=== PATIENT | male | born 2005 | race Caucasian/White ===

== ENCOUNTER 2023-10-17 15:51 | Emergency (ER) | payer SELFPAY ==
[~2023-10-17] VITALS: Ht 172.7 cm; Wt 90.0 kg
[2023-10-17 15:55] VITALS: O2SAT 100
[2023-10-17] MEDS ORDERED: SODIUM CHLORIDE 0.9% 1,000 ML IV ONE (16:15)
[2023-10-17] MEDS ORDERED: KETOROLAC 15MG/ML VIAL IV ONE (16:15)
[2023-10-17] MEDS ORDERED: NALO4SPR BOTHNSTRLS (16:16)
[2023-10-17 16:20] VITALS: TEMP 98.9
[2023-10-17 16:46] VITALS: BP 136/62; PULSE 106; RESP 20
[2023-10-17 16:57] LABS: BASOPHILS % 0.4 % (0.0-2.0); EOSINOPHILS % 0.7 % (0.0-5.0); HEMATOCRIT. 40.8 % (42.0-52.0); HEMOGLOBIN. 13.7 g/dL (14.0-18.0); MEAN CORPUSCULAR HEMOGLOBIN 28.6 pg (28.0-32.0); MEAN CORPUSCULAR HGB CONC 33.5 g/dL (31.0-37.0); MEAN CORPUSCULAR VOLUME 85.3 fL (80.0-94.0); MEAN PLATELET VOLUME 8.1 fl (7.4-10.4); MONOCYTES % 8.5 % (2.0-8.0); NEUTROPHILS % 73.4 % (40.0-76.0); PLATELET 264 x1000/uL (130-400); RED BLOOD CELL COUNT 4.79 mill/uL (4.7-6.1); RED CELL DISTRIBUTION WIDTH 14.3 % (11.6-14.6); WHITE BLOOD COUNT 14.4 x1000/uL (4.5-11.0)
[2023-10-17 17:28] LABS: ACETAMINOPHEN < 2 ug/mL (10-30); ALANINE AMINOTRANSFERASE 36 IU/L (10-49); ALBUMIN 4.6 g/dL (3.2-4.8); ASPARTATE AMINOTRANSFERASE 41 IU/L (<34); BILIRUBIN TOTAL 0.8 mg/dL (0.1-1.0); CALCIUM 9.7 mg/dL (8.7-10.4); CARBON DIOXIDE 28 mEq/L (21-32); CHLORIDE 102 mEq/L (98-107); GLUCOSE 83 mg/dL (70-105); POTASSIUM 3.9 mEq/L (3.5-5.1); PROTEIN TOTAL 7.5 g/dL (6.0-8.3); SODIUM 138 mEq/L (136-145); UREA NITROGEN BLOOD 11 mg/dL (9-23)
[2023-10-17 17:31] LABS: ETHANOL BLOOD < 10 mg/dL (<10)
== END 2023-10-18 04:38 | disposition home or self-care (01) ==
LOC: ER 15:51
DX: T40.2X1A Poisoning by other opioids, accidental (unintentional), initial encounter (principal); F12.90 Cannabis use, unspecified, uncomplicated; F19.90 Other psychoactive substance use, unspecified, uncomplicated; Y92.89 Other specified places as the place of occurrence of the external cause
CPT/HCPCS: 80053; 80307; 80329; 80320; 85025; 36415; 70450; 93005; 96374; 99285; J1885; J7030; Z7610 ×2; G0480